=== PATIENT | female | born 1965 | race Two or more races ===

== ENCOUNTER → 2018-01-19 | Outpatient (CLI) | payer BC ==
--- NOTE | 2018-01-20 08:48 | Diagnostic Imaging Report ---
#[id number] - [id number] #BILATERAL DIGITAL DIAGNOSTIC MAMMOGRAM WITH CAD: 01/19/2018 Comparison is made to exams dated: 03/10/2017 mammogram, 02/24/2017 mammogram, 02/27/2016 mammogram and 03/05/2015 mammogram - [facility]. Current study contains 6 films. The tissue of both breasts is heterogeneously dense. This may lower the sensitivity of mammography. Current study was also evaluated with a Computer Aided Detection (CAD) system. There is a benign calcified nodule in the right breast. A mass marker is noted on the right breast with no corresponding mammographic finding or abnormality. No significant masses, calcifications, or other findings are seen in either breast. There has been no significant interval change. IMPRESSION: BENIGN There is no mammographic evidence of malignancy. A 1 year screening mammogram is recommended. The patient will be notified by letter of the results. Castro Corcoran Jr., D.O. cw/:01/19/2018 15:57:35 Major Assembler: Lori GRAFF(Deb)(M), [facility] letter sent: Normal Exam Mammogram BI-RADS: 2 Benign
== END ==
LOC: MAMMO 08:42
DX: N60.01 Solitary cyst of right breast (principal)
CPT/HCPCS: 77066

== ENCOUNTER → 2020-01-31 | Outpatient (CLI) | payer BC | LOC: MAMMO 10:18 | DX: Z12.31 Encounter for screening mammogram for malignant neoplasm of breast (principal) | CPT/HCPCS: 77067 ==

== ENCOUNTER → 2021-02-01 | Emergency (ER) | payer BC | END | disposition home or self-care (01) | LOC: ER 20:21 | DX: Z20.822 Contact with and (suspected) exposure to COVID-19 (principal) | CPT/HCPCS: U0002 ==

== ENCOUNTER → 2021-03-04 | Outpatient (CLI) | payer BC | LOC: MAMMO 08:36 | DX: Z12.31 Encounter for screening mammogram for malignant neoplasm of breast (principal) | CPT/HCPCS: 77067 ==

== ENCOUNTER → 2021-03-20 | Outpatient (CLI) | payer BC | LOC: MAMMO 08:39 | DX: N63.10 Unspecified lump in the right breast, unspecified quadrant (principal) ==